=== PATIENT | female | born 1945 | race Caucasian/White ===

== ENCOUNTER 2023-03-05 17:11 | Emergency (ER) | payer MEDICARE, SELFPAY ==
[2023-03-05 17:16] VITALS: BP 141/80; PULSE 62; RESP 16; TEMP 36.7; O2SAT 92
--- NOTE | 2023-03-05 17:24 | XRR_ITS ---
PROCEDURE INFORMATION: Exam: XR Left Hip Exam date and time: 03/05/2023 5:44 PM Age: 77 years old Clinical indication: Hip pain; Left hip; Additional info: Fall injury, include pelvis TECHNIQUE: Imaging protocol: Radiologic exam of the left hip. Views: 2 or 3 views hip with pelvis when performed. COMPARISON: CT abdomen pelvis w con* [id number] 09/03/2017 12:56 PM FINDINGS: Bones/joints: Subtle cortical irregularity suspicious for a nondisplaced fracture at the superior aspect of the subcapital left femur. Bones are diffusely osteopenic. Degenerative changes in the spine, sacroiliac joints, and hips. Soft tissues: No soft tissue swelling. No radiopaque foreign body. XR/XR hip LT 2-3V wo/w pel* [id number] IMPRESSION: 1. Subtle cortical irregularity suspicious for a nondisplaced fracture at the superior aspect of the subcapital left femur. CT scan or MRI is recommended for further evaluation. 2. Incidental/nonacute findings are listed in the report.
--- NOTE | 2023-03-05 17:24 | W.ED.FALL ---
HPI - Fall General: Chief Complaint: Fall Stated Complaint: fall Time Seen by Provider: 03/05/23 17:24 History of Present Illness: 77-year-old female comes in today for complaints of fall injury. Patient was outside picking [employer] when she was looking up into the tree and became dizzy causing her to lose her balance and fall. Patient landed on her left side. Patient reports left hip pain and some mild left rib pain. Patient was able to ambulate after the injury and get back to the house but states the pain is worsened. Patient refuses any medications for pain at this time. Patient is able to lift the knee off the bed slightly but reports significant pain. Associated symptoms-after fall: Denies chest pain or neck pain Review of Systems General: Reports: 10 or more systems reviewed and unremarkable except in HPI and below Const: Denies: fever(s) Card: Denies: chest pain Resp: Denies: dyspnea GI: Denies: vomiting : Denies: difficulty voiding Musc: Reports: joint pain (Left hip) and other (Left rib); Denies: neck pain or back pain Neuro: Reports: dizziness (Chronic,) Physical Exam Const: COMMON NORMALS: alert HENMT: COMMON NORMALS: atraumatic HEAD & SCALP: atraumatic MOUTH: Normal oral and palatal mucosa present Neck/C-Spine: COMMON NORMALS: full ROM Resp: COMMON NORMALS: normal respiratory effort and clear to auscultation bilaterally AUSCULTATION: clear to auscultation bilaterally Cardio: COMMON NORMALS: regular rate and regular rhythm RATE: regular rate RHYTHM: regular rhythm GI: COMMON NORMALS: Soft to palpation and non-tender PALPATION: Yes Soft to palpation : COMMON NORMALS: Yes no CVA tenderness BLADDER/KIDNEY EXAM: Yes no CVA tenderness Back/Pelvis: COMMON NORMALS: no CVA tenderness THORACIC SPINE/UPPER BACK: No thoracic spinal tenderness LUMBAR SPINE/LOWER BACK: No lumbar spinal tenderness Extremity: RIGHT LOWER EXTREMITY: Yes hip joint (Decreased range of motion due to pain) Neuro: SENSORIUM/ORIENTATION: Yes alert Skin: COMMON NORMALS: turgor normal GENERAL SKIN EXAM: turgor normal Course Vital Signs: Vital signs: Vital Signs Temperature 98.1 F 03/05/23 17:16 Pulse Rate 62 03/05/23 17:16 Respiratory Rate 16 03/05/23 17:16 Blood Pressure 141/80 03/05/23 17:16 Pulse Oximetry 92 03/05/23 17:16 Oxygen Delivery Me thod Room Air 03/05/23 17:16 MDM - Fall Medical Decision Making 77-year-old female that was outside today when she was looking up into a tree and became dizzy causing her to fall. Patient reports these dizzy spells are chronic for her. Head movement will usually exacerbate the condition. Patient denies any chest pain or shortness of breath. Patient reports left rib pain and left hip pain. Patient was able to bear weight on the left lower extremity with ambulation into the house. Patient appears in mild pain at rest. Vital signs are normal. Differential diagnosis includes but not limited to nondisplaced hip fracture, pelvis fracture, rib fracture, contusion, sprain. X-ray noted possible hip fracture and recommended CT scan. Rib films did not indicate any acute fracture. CT scan to further evaluate left hip noted inferior and superior pubic ramus fracture that was nondisplaced. Reviewed this with Dr. Robins who recommended weightbearing as tolerated and follow-up in office. Patient reported understanding of care plan and recommendations. Lab Data Radiology Impressions Hip/Pelvis X-Ray 03/05/23 17:24 IMPRESSION: 1. Subtle cortical irregularity suspicious for a nondisplaced fracture at the superior aspect of the subcapital left femur. CT scan or MRI is recommended for further evaluation. 2. Incidental/nonacute findings are listed in the report. Ribs X-Ray 03/05/23 17:28 IMPRESSION: 1. No acute cardiopulmonary process. 2. No acute fracture. 3. CT scan of the chest with contrast would be recommended if there is continuing clinical concern for thoracic injury. 4. Incidental/nonacute findings are listed in the report. Hip CT 03/05/23 18:28 IMPRESSION: 1. Mildly comminuted, nondisplaced fracture of the left inferior pubic ramus. 2. Nondisplaced fracture at the junction of the left superior pubic ramus and the anteromedial left acetabulum . 3. Sigmoid diverticulosis. No evidence for diverticulitis. 4. Incidental/nonacute findings are listed in the report. Discharge Plan Discharge Patient Disposition: Home Clinical Impression: Closed pelvic fracture Qualifiers: Encounter type: initial encounter Pelvic bone location: other part of pelvis Qualified Code(s): S32.89XA - Fracture of other parts of pelvis, initial encounter for closed fracture Condition: Stable Prescriptions: New hydrocodone-acetaminophen 5-325 mg tablet 1 tab PO Q6H PRN (Reason: pain (scale score 7-10)) Qty: 10 0RF Discharge Orders: Discharge ED (Routine); Ordered 03/05/23 Ordered By: Freddy Pascual Referrals: Letitia Keith DO [Primary Care Provider] - Discharge Diet: Usual diet Discharge Activity: Increase activity as tolerated Patient Instructions: Pelvic Fracture (ED), Opioid Safety Activity Restrictions/Additional Instructions: Weightbearing as tolerated. Use a walker to assist with ambulation and weightbearing. Use acetaminophen and/or ibuprofen as needed to control pain. Use hydrocodone for severe pain. Follow-up with orthopedics in the office. Case management will contact you regarding follow-up appointment. Coding Level of Care Code ED Transportation Analyst for Angela Alfredo
--- NOTE | 2023-03-05 17:28 | XRR_ITS ---
PROCEDURE INFORMATION: Exam: XR Left Ribs with PA Chest Exam date and time: 03/05/2023 5:39 PM Age: 77 years old Clinical indication: Other: Medial rib pain; Additional info: Fall injury, medial rib pain TECHNIQUE: Imaging protocol: Radiologic exam of the left ribs with PA chest. Views: 3 views COMPARISON: CR XR chest 1V [id number] 09/02/2017 4:45 PM FINDINGS: Lungs: Stable linear scarring in the mid and lower lungs. No focal consolidation. No pulmonary edema. Pleural spaces: No pleural effusion. No pneumothorax. Heart/Mediastinum: Stable mild enlargement of the cardiac silhouette. Mediastinal contours are unremarkable. Vasculature: Stable vascular calcifications in the aorta. Stable tortuosity of the aorta. Bones/joints: Bones are diffusely osteopenic. Degenerative changes in the spine and shoulders. No acute fracture. Bones are diffusely osteopenic. Soft tissues: No soft tissue swelling. No radiopaque foreign body. XR/XR ribs LT mn 3V w CXR1V [id number] IMPRESSION: 1. No acute cardiopulmonary process. 2. No acute fracture. 3. CT scan of the chest with contrast would be recommended if there is continuing clinical concern for thoracic injury. 4. Incidental/nonacute findings are listed in the report.
--- NOTE | 2023-03-05 18:28 | CTR_ITS ---
PROCEDURE INFORMATION: Exam: CT Left Lower Extremity Without Contrast, Hip Exam date and time: 03/05/2023 6:35 PM Age: 77 years old Clinical indication: Injury or trauma; Fall; Blunt trauma; Hip; Left; Additional info: Probable hip fracture TECHNIQUE: Imaging protocol: CT of the left lower extremity without contrast was performed. Exam focused on the hip. Sagittal and coronal reformatted images were created and reviewed. Radiation optimization: All CT scans at this facility use at least one of these dose optimization techniques: automated exposure control; mA and/or kV adjustment per patient size (includes targeted exams where dose is matched to clinical indication); or iterative reconstruction. REPORTING DATA: Count of CT and Cardiac NM exams in prior 12 months: This patient has received 0 known CTs and 0 known cardiac nuclear medicine studies in the 12 months prior to the current study. COMPARISON: CR (PELVIS, ) 03/05/2023 5:44 PM RADIATION DOSE METRICS: Total DLP (mGy-cm): 414.2 FINDINGS: Bones/joints: Mild degenerative changes of the left sacroiliac joint. Moderate to severe degenerative changes in the visualized spine. Mild degenerative change at the left hip. Bones are diffusely osteopenic. No acute fracture of the left femur. Mildly comminuted, nondisplaced fracture of the left inferior pubic ramus. Nondisplaced fracture at the junction of the left superior pubic ramus and the anteromedial left acetabulum (series 3, images 46-50). Soft tissues: No soft tissue swelling. No radiopaque foreign body. Bowel: Numerous diverticula in the sigmoid colon. No evidence for diverticulitis. Urinary bladder: The bladder is incompletely filled, which can limit evaluation. No focal abnormality in the bladder however. CT/CT hip LT wo con* [id number] IMPRESSION: 1. Mildly comminuted, nondisplaced fracture of the left inferior pubic ramus. 2. Nondisplaced fracture at the junction of the left superior pubic ramus and the anteromedial left acetabulum . 3. Sigmoid diverticulosis. No evidence for diverticulitis. 4. Incidental/nonacute findings are listed in the report.
[2023-03-05 19:55] VITALS: BP 164/87; PULSE 62; RESP 16; O2SAT 91
--- NOTE | 2023-03-06 11:12 | DCPLANNER ---
Addendum entered by Alanna Calle 03/08/23 06:04: cytology manager received the following message from the ortho clinic regarding follow up appointment: Called patient to make an appointment. She is declining an appointment at this time. She will call us back if she changes her mind, if she does call back, we will schedule her with Dr. Robins. Original Note: cytology manager had message to schedule a follow up appointment for patient with ortho. cytology manager sent patients information to the front office staff at ortho. Patients information will be printed and reviewed. Clinic will call patient with appointment information.
== END 2023-03-05 20:04 | disposition home or self-care (01) ==
PROVIDERS: Emergency Provider Nurse Practitioner Family; PCP Family Medicine
DX: S32.512A Fracture of superior rim of left pubis, initial encounter for closed fracture (principal); S32.592A Other specified fracture of left pubis, initial encounter for closed fracture; W18.39XA Other fall on same level, initial encounter
CPT/HCPCS: 71101; 73502; 73700; 99284

== ENCOUNTER → 2023-04-06 14:10 | Outpatient (BNVA) | payer MEDICARE, SELFPAY | PROVIDERS: PCP Family Medicine; Referring Provider Nurse Practitioner Family; Visit Provider Specialist | DX: S32.592A Other specified fracture of left pubis, initial encounter for closed fracture (principal); W18.30XA Fall on same level, unspecified, initial encounter | CPT/HCPCS: 27197; 72170; 99203 ==

== ENCOUNTER → 2023-05-20 12:40 | Outpatient (BNVA) | payer MEDICARE, SELFPAY | PROVIDERS: PCP Family Medicine; Visit Provider Internal Medicine Cardiovascular Disease | DX: R42 Dizziness and giddiness (principal); I49.1 Atrial premature depolarization; I49.3 Ventricular premature depolarization; R00.1 Bradycardia, unspecified | CPT/HCPCS: 93225 ==

== ENCOUNTER 2023-06-04 14:17 | Outpatient (CLI) | payer MEDICARE, SELFPAY ==
--- NOTE | 2023-06-04 14:30 | MR_ITS ---
WS: [id number] MRI BRAIN WITH AND WITHOUT CONTRAST HISTORY: DIZZINESS COMPARISON: 12/30/2013 TECHNIQUE: Multiplanar imaging performed through the brain with MultiHance 12 ml's IV. No acute infarcts are seen. Gonzalez-white matter differentiation is well preserved. Moderate progression of T2 and FLAIR signal hyperintensities within the white matter since the prior study from 2013. Mod erate volume loss in the supratentorial and infratentorial white matter. No susceptibility artifacts or prior lacunar infarcts. Ventricles and extra-axial spaces are mildly prominent. Clivus and pituitary gland are normal. Visualized posterior fossa and brainstem are also normal. Postcontrast images are negative for masses or vascular malformations. Dural venous sinuses are normal. Paranasal sinuses: Well aerated with no significant disease. Mastoid air cells: Normal. Calvarium and scalp: Normal. IMPRESSION: 1. No acute infarct or enhancing masses. 2. Moderate progression of small vessel ischemic disease since 2013. 3. Moderate volume loss and parenchymal atrophy.
--- NOTE | 2023-06-04 14:30 | XR_ITS ---
WS: [id number] SCREENING DEXA SCAN [facility] CLINICAL INFORMATION: OSTEOPOROSIS,SENILE COMPARISON: 2018 FINDINGS: The L1-L4 bone mineral density measures 1.095 g/cm2. This corresponds to a T score score of -0.7 and Z score of 0.7. Left femoral neck bone mineral density measures 0.721 g/cm2. This corresponds to a T score of -2.3 an d Z score of -0.6. Right femoral neck bone mineral density measures 0.786 g/cm2. This corresponds to a T score -1.8of an d Z score of -0.1. Mean femoral neck bone mineral density measures 0.754 g/cm2. This corresponds to a T score of -2.0 an d Z score of -0.3. IMPRESSION: Normal bone mineralization lumbar spine. Osteopenia femoral necks. Patient's FRAX calculated 10 year probability for major osteoporotic fracture is 43.0% and osteoporot ic hip fracture is 28.7%. Bone mineral density lumbar spine decreased -0.8% Bone mineral density femoral necks decreased -5.2%
[2023-06-04] MEDS: gadobenate dimeglumine 20 mL vial IV (16:15)
== END 2023-06-04 14:18 | disposition home or self-care (01) ==
PROVIDERS: PCP Family Medicine; Visit Provider Family Medicine
DX: Z13.820 Encounter for screening for osteoporosis (principal); M81.0 Age-related osteoporosis without current pathological fracture; R42 Dizziness and giddiness; I67.89 Other cerebrovascular disease; R41.81 Age-related cognitive decline
CPT/HCPCS: 70553; 77080; A9577

== ENCOUNTER 2025-03-27 13:08 | Outpatient (CLI) | payer MEDICARE, SELFPAY ==
--- NOTE | 2025-03-27 13:18 | CT_ITS ---
WS: [id number] CT NECK TECHNIQUE: Contrast-enhanced CT of the neck with coronal and sagittal reformatted images. CLINICAL INFORMATION: SIALOADENITIS,CHRONIC OF SUBMANDIBULAR GLAND COMPARISON: None. DLP: 161.[address] scans at [facility] use at least one of these dose optimization techniques: automated exposure control; mA and/or kV adjustment per patient size (includes targeted exams where dose is matched to clinical indication); or iterative reconstruction. FINDINGS: Normal parotid glands. Normal submandibular glands. Enlarged lymph node or accessory submandibular gland abutting the mylohyoid anteriorly. This measures approximately 2.5 x 1.5 cm likely corresponds to the area of concern. Normal posterior nasopharynx. Normal parapharyngeal fat. No evidence of supraglottic or glottic mass. Normal vallecula and piriform sinuses. Normal subglottic airway. A few small subcentimeter thyroid nodules. Partially visualized paranasal sinuses are well aerated. Mastoid air cells are well aerated. Advanced spondylitic changes cervical spine. No cervical lymphadenopathy. Aortic calcification. Partially visualized distended subcoracoid bursa with loose bodies. CT/CT neck w con* [id number] IMPRESSION: 1. In the area of palpable concern, there is a 2.5 x 1.4 cm lesion which resem bles submandibular tissue and may present accessory submandibular gland versus an enlarged lymph node. Recommend clinical correlation with area of concern. 2. Salivary glands are otherwise normal in appearance. 3. Few subcentimeter thyroid nodules. 4. No other acute findings.
[2025-03-27 13:43] LABS: Blood Urea Nitrogen 13 mg/dL (8-23)
[2025-03-27] MEDS: iohexol 350 mg/mL 500 mL Btl (per mL) IV (13:48)
== END 2025-03-27 13:09 | disposition home or self-care (01) ==
LOC: RAD 13:13
PROVIDERS: PCP Family Medicine; Visit Provider Otolaryngology
DX: K11.23 Chronic sialoadenitis (principal); E04.2 Nontoxic multinodular goiter
CPT/HCPCS: 70491; 82565; 84520

== ENCOUNTER 2025-08-01 09:42 | Outpatient (CLI) | payer MEDICARE, SELFPAY ==
--- NOTE | 2025-08-01 09:53 | CT_ITS ---
WS: [id number] CT NECK TECHNIQUE: Contrast-enhanced CT of the neck with coronal and sagittal reformatted images. 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 DLP: 152.[address] scans at [facility] use at least one of these dose optimization techniques: automated exposure control; mA and/or kV adjustment per patient size (includes targeted exams where dose is matched to clinical indication); or iterative reconstruction. FINDINGS: Small bilateral thyroid nodules. Aortic calcification. Advanced spondylitic changes cervical spine. Partially visualized paranasal sinuses are well aerated. Mastoid air cells are well aerated. Parotid glands are normal. Submandibular glands are normal. Normal posterior nasopharynx. Normal parapharyngeal fat. No evidence of supraglottic or glottic mass. Normal subglottic airway. Normal vallecula and piriform sinuses. Normal subglottic airway. No cervical lymphadenopathy. Previously described lesion in the area of palpable concern LEFT mandible anteriorly is unchanged and again may represent accessory submandibular gland which is unchanged and benign in appearance. This also may represent a mylohyoid defect with herniated sublingual gland tissue into the mylohyoid defect. CT/CT neck w con* [id number] IMPRESSION: 1. No cervical lymphadenopathy. 2. No evidence of supraglottic or glottic mass. 3. Small bilateral thyroid nodules. 4. Previously described area of concern along the LEFT floor of mouth is stabl e in appearance. This may present accessory submandibular tissue or more likely a mylohyoid defect with herniated sublingual gland tissue into the submandibul ar space. Regardless this has a nonaggressive appearance and is unchanged. 5. No other acute findings
[2025-08-01] MEDS: iohexol 350 mg/mL 500 mL Btl (per mL) IV (10:36)
== END 2025-08-01 09:43 | disposition home or self-care (01) ==
PROVIDERS: PCP Family Medicine; Visit Provider Otolaryngology
DX: D37.032 Neoplasm of uncertain behavior of the submandibular salivary glands (principal); R68.84 Jaw pain; E04.2 Nontoxic multinodular goiter; R93.89 Abnormal findings on diagnostic imaging of other specified body structures; I70.0 Atherosclerosis of aorta; M47.892 Other spondylosis, cervical region
CPT/HCPCS: 70491